=== PATIENT | female | born 1995 ===

== ENCOUNTER 2017-11-14 09:50 | Outpatient (CLI) | payer OTHER ==
[~2017-11-14] VITALS: Ht 162.6 cm; Wt 68.0 kg
[2017-11-14] MEDS ORDERED: ZYRTEC10 MG PO (10:41)
[2017-11-14] MEDS ORDERED: MEDROL4 MG PO (10:41)
[2017-11-14] MEDS ORDERED: CEFUROXIME500 MG PO (10:41)
[2017-11-14] MEDS ORDERED: FLONASE16 GM NASAL (10:41)
== END 2017-11-14 10:15 | disposition home or self-care (01) ==
LOC: OFIC 805 09:50
DX: J31.0 Chronic rhinitis (principal); J32.8 Other chronic sinusitis; J34.3 Hypertrophy of nasal turbinates; R05 Cough; J35.1 Hypertrophy of tonsils

== ENCOUNTER 2018-01-09 10:04 | Outpatient (CLI) | payer OTHER ==
[~2018-01-09] VITALS: Ht 152.4 cm; Wt 68.0 kg
[~2018-01-09 10:04] MED LIST: CEFUROXIME500 MG PO; FLONASE16 GM NASAL; MEDROL4 MG PO; ZYRTEC10 MG PO
[2018-01-09] MEDS ORDERED: DYMISTA NASAL S23 GM NASAL (12:24)
== END 2018-01-09 10:15 | disposition home or self-care (01) ==
LOC: OFIC 805 10:04
DX: J32.8 Other chronic sinusitis (principal); J31.0 Chronic rhinitis; J34.3 Hypertrophy of nasal turbinates; R05 Cough; J35.1 Hypertrophy of tonsils